=== PATIENT | female | born 1940 | race Caucasian/White ===

== ENCOUNTER → 2016-11-21 | Outpatient (REF) | payer MEDICARE ==
[~2016-11-21] MED LIST: ASPI1TAB PO; CALCIUM; KRIL300C PO; LEVO125T41 PO; LUTE6CAP2 PO; MULTTAB PO; [UNRECOGNIZED DRUG - OTHER]
[2016-11-21 11:27] LABS: ANION GAP 6 MEQ/L (8-16); BLOOD UREA NITROGEN 19 MG/DL (7-18); CALCIUM LEVEL 9.2 MG/DL (8.8-10.2); CARBON DIOXIDE LEVEL 31 MEQ/L (21-32); CHLORIDE LEVEL 105 MEQ/L (98-107); CHOLESTEROL LEVEL 182 MG/DL (<200); CREATININE FOR GFR 0.73 MG/DL (0.55-1.02); GLOMERULAR FILTRATION RATE > 60.0 (>39); GLUCOSE, FASTING 105 MG/DL (83-110); POTASSIUM SERUM 4.7 MEQ/L (3.5-5.1); SODIUM LEVEL 142 MEQ/L (136-145); TRIGLYCERIDES LEVEL 54 MG/DL (<150)
[2016-11-21 11:41] LABS: MEAN CORPUSCULAR HEMOGLOBIN 30.8 pg (27.0-33.0); MEAN CORPUSCULAR HGB CONC 32.6 g/dl (32.0-36.5); MEAN CORPUSCULAR VOLUME 94.4 fl (80.0-96.0); RED CELL DISTRIBUTION WIDTH 12.2 % (11.5-14.5); WHITE BLOOD COUNT 6.5 K/mm3 (4.0-10.0)
== END ==
LOC: M SFHCLERA 08:32
PROVIDERS: ATTEND Family Medicine
DX: E78.00 Pure hypercholesterolemia, unspecified (principal)

== ENCOUNTER → 2017-02-13 | Outpatient (CLI) | payer MEDICARE ==
--- NOTE | 2017-02-13 14:42 | REPMRS ---
Patient History The patient states she has not had a clinical breast exam in over a year. Patient is postmenopausal and has history of other cancer at age 67. No known family history of cancer. Digital Woman Screen Mammo: February 13, 2017 - Exam #: [id number] Bilateral CC and MLO view(s) were taken. Technologist: Saray Fitch Technologist Prior study comparison: March 24, 2015, digital woman screen mammo performed at [facility]. January 12, 2012, digital woman screen mammo performed at [facility]. FINDINGS: There are scattered fibroglandular densities. There has been no change in the appearance of the mammogram from the prior studies. There is a mild amount of residual fibroglandular tissue which is fairly symmetric. There is no interval development of dominant mass, architectural distortion, or clustered microcalcification suggestive of malignancy. ASSESSMENT: BI-RADS/ACR category 1 mammogram. Negative. Recommendation Routine screening mammogram in 1 year (for women over age 40). This mammogram was interpreted with the aid of an FDA-approved computer-aided dectection system. Electronically Signed By: Jericho Solano MD 02/13/17 [id number]
== END ==
LOC: M WHC 13:31
PROVIDERS: ATTEND Family Medicine
DX: Z12.31 Encounter for screening mammogram for malignant neoplasm of breast (principal)

== ENCOUNTER → 2017-06-19 | Outpatient (REF) | payer MEDICARE ==
[2017-06-19 20:47] LABS: FREE T4 1.35 NG/DL (0.76-1.46)
== END ==
LOC: M SFHCLERA 15:11
PROVIDERS: ATTEND Family Medicine
DX: R94.6 Abnormal results of thyroid function studies (principal); Z23 Encounter for immunization
CPT/HCPCS: 84439; 84443; 90686; G0008; G0463

== ENCOUNTER → 2017-10-08 | Outpatient (CLI) | payer MEDICARE | LOC: M LRY 14:57 | DX: M79.662 Pain in left lower leg (principal); M17.12 Unilateral primary osteoarthritis, left knee | CPT/HCPCS: 73564; G0463 ==

== ENCOUNTER → 2018-04-15 | Outpatient (REF) | payer MEDICARE | LOC: M SFHCLERA 11:19 | DX: R31.9 Hematuria, unspecified (principal) | CPT/HCPCS: 87086 ==

== ENCOUNTER → 2018-08-02 | Outpatient (REF) | payer MEDICARE ==
[2018-08-02 16:45] LABS: ALBUMIN 3.5 GM/DL (3.2-5.2); ALBUMIN/GLOBULIN RATIO 1.03 (1.00-1.93); ALKALINE PHOSPHATASE 82 U/L (45-117); ALT/SGPT 19 U/L (12-78); ANION GAP 8 MEQ/L (8-16); AST/SGOT 15 U/L (7-37); BILIRUBIN,TOTAL 0.3 MG/DL (0.2-1.0); BLOOD UREA NITROGEN 25 MG/DL (7-18); CALCIUM LEVEL 8.2 MG/DL (8.8-10.2); CARBON DIOXIDE LEVEL 27 MEQ/L (21-32); CHLORIDE LEVEL 106 MEQ/L (98-107); CHOLESTEROL LEVEL 169 MG/DL (<200); CHOLESTEROL RISK RATIO 2.816 (<5); CREATININE FOR GFR 0.78 MG/DL (0.55-1.30); GLOMERULAR FILTRATION RATE > 60.0 (>39); GLUCOSE, FASTING 76 MG/DL (70-100); HDL CHOLESTEROL 60 MG/DL (>40); LDL CHOLESTEROL 88 MG/DL (<100); NON-HDL-C 109 MG/DL; POTASSIUM SERUM 4.6 MEQ/L (3.5-5.1); SODIUM LEVEL 141 MEQ/L (136-145); TOTAL PROTEIN 6.9 GM/DL (6.4-8.2); TRIGLYCERIDES LEVEL 103 MG/DL (<150)
== END ==
LOC: M SFHCLERA 13:11
DX: E78.5 Hyperlipidemia, unspecified (principal); E03.9 Hypothyroidism, unspecified
CPT/HCPCS: 84443

== ENCOUNTER → 2018-08-06 | Outpatient (REF) | payer MEDICARE ==
[2018-08-06 17:13] LABS: APPEARANCE, URINE CLEAR (CLEAR); BACTERIA, URINE AUTO NEGATIVE (NEGATIVE); BILIRUBIN, URINE AUTO NEGATIVE (NEGATIVE); BLOOD, URINE BLOOD NEGATIVE (NEGATIVE); COLOR, URINE STRAW (YELLOW); GLUCOSE, URINE (UA) AUTO NEGATIVE (NEGATIVE); KETONE, URINE AUTO NEGATIVE (NEGATIVE); LEUKOCYTE ESTERASE, URINE AUTO 1+ (NEGATIVE); MUCUS, URINE SMALL (NEGATIVE); NITRITE, URINE AUTO NEGATIVE (NEGATIVE); PROTEIN, URINE AUTO NEGATIVE (NEGATIVE); RBC, URINE AUTO 1 /HPF (0-3); SQUAMOUS EPITHELIAL CELL UR AU 0 /HPF (0-6); UROBILINOGEN, URINE AUTO 0.2 mg/dL (0.0-2.0); WBC, URINE AUTO 3 /HPF (0-3)
== END ==
LOC: M SFHCLERA 13:59
DX: R31.9 Hematuria, unspecified (principal); Z23 Encounter for immunization
CPT/HCPCS: 81001

== ENCOUNTER 2018-09-24 21:24 | Emergency (ER) | payer MEDICARE ==
[~2018-09-24] VITALS: Ht 154.9 cm; Wt 64.1 kg
[2018-09-24] MEDS ORDERED: ATOR1TAB19 PO (21:36)
[2018-09-24] MEDS ORDERED: LISI-542 PO (21:36)
[2018-09-24] MEDS ORDERED: NS 500 ML IV ONE (23:00)
[2018-09-24] MEDS ORDERED: METOCLOPRAMIDE INJ 10MG/2ML VIAL (J2765) IV ONE (23:15)
[2018-09-24] MEDS ORDERED: MORPHINE 4 MG/ML 1ML VIAL/SYRINGE (J2270) IV ONE (23:15)
[2018-09-24 23:18] LABS: BASO % 0.4 % (0.0-1.0); EOS # 0.1 10^3/uL (0.0-0.50); EOS % 0.5 % (0.0-3.0); HEMATOCRIT 40.7 % (36.0-47.0); HEMOGLOBIN 13.5 g/dl (12.0-15.5); LYMPH # 1.4 10^3/uL (1.5-4.5); LYMPH % 13.7 % (24.0-44.0); MEAN CORPUSCULAR HEMOGLOBIN 30.5 pg (27.0-33.0); MEAN CORPUSCULAR HGB CONC 33.2 g/dl (32.0-36.5); MEAN CORPUSCULAR VOLUME 92.1 fl (80.0-96.0); MONO # 0.5 10^3/uL (0.0-0.8); MONO % 4.7 % (0.0-5.0); NEUTROPHILS # 8.3 10^3/uL (1.8-7.7); NEUTROPHILS % 80.4 % (36.0-66.0); PLATELET COUNT, AUTOMATED 299 10^3/uL (150-450); RED BLOOD COUNT 4.42 10^6/uL (4.00-5.40); WHITE BLOOD COUNT 10.4 10^3/uL (4.0-10.0)
[2018-09-24 23:46] LABS: ALT/SGPT 21 U/L (12-78); BILIRUBIN,DIRECT 0.1 MG/DL (0.0-0.2); BILIRUBIN,TOTAL 0.4 MG/DL (0.2-1.0); BLOOD UREA NITROGEN 16 MG/DL (7-18); CALCIUM LEVEL 8.8 MG/DL (8.8-10.2); CARBON DIOXIDE LEVEL 25 MEQ/L (21-32); CHLORIDE LEVEL 101 MEQ/L (98-107); CREATININE FOR GFR 0.64 MG/DL (0.55-1.30); GLOMERULAR FILTRATION RATE > 60.0 (>39); GLUCOSE, FASTING 109 MG/DL (70-100); LIPASE 112 U/L (73-393); POTASSIUM SERUM 4.1 MEQ/L (3.5-5.1); SODIUM LEVEL 134 MEQ/L (136-145); TOTAL PROTEIN 7.3 GM/DL (6.4-8.2)
--- NOTE | 2018-09-24 23:54 | REPVR ---
EXAM: CT Abdomen and Pelvis Without Contrast EXAM DATE/TIME: 09/24/2018 10:49 PM CLINICAL HISTORY: 78 years old, female; Pain; Abdominal pain; Flank; Left; Additional info: Colic TECHNIQUE: Axial computed tomography images of the abdomen and pelvis without contrast. All CT scans at this facility use at least one of these dose optimization techniques: automated exposure control; mA and/or kV adjustment per patient size (includes targeted exams where dose is matched to clinical indication); or iterative reconstruction. Coronal and sagittal reformatted images were created and reviewed. COMPARISON: No relevant prior studies available. FINDINGS: Lower thorax: Multiple pulmonary parenchymal calcifications likely represent granulomatous. Healed varicella lesions, pulmonary alveolar microlithiasis, occupational lung disease, and metastatic calcifications and hypercalcemia can have a similar appearance. Left paraspinal mass in the left lower lung measures 5.9 x 2.6 cm. Relatively low density lesion may indicate a neural origin such as schwannoma although other etiologies not excluded. Small sliding hiatal hernia. ABDOMEN: Liver: Normal. No mass. Gallbladder and bile ducts: Normal. No calcified stones. No ductal dilation. Pancreas: Normal. No ductal dilation. Spleen: Normal. No splenomegaly. Adrenals: Normal. No mass. Kidneys and ureters: There is a 6.5 mm. obstructive ureteral calculus located in the proximal left ureter as well as smaller obstructive calculi in the mid to distal left ureter measuring 3 mm and 5 mm resulting in moderate proximal hydroureteronephrosis. There is marked periureteral and perinephric stranding. 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 Punctate nonobstructive calculus left kidney. Umbilical hernia. Stomach and bowel: Normal. No obstruction. No mucosal thickening. Appendix: No evidence of appendicitis. PELVIS: Bladder: Unremarkable as visualized. Reproductive: Unremarkable as visualized. ABDOMEN and PELVIS: Intraperitoneal space: Normal. No free air. No significant fluid collection. Bones/joints: Mild anterolisthesis of L5 and S1, L4 on L5, and L3 on L4 all likely degenerative. Soft tissues: Otherwise unremarkable. Vasculature: Mild atherosclerotic changes in the abdominal aorta. No abdominal aortic aneurysm. Lymph nodes: Normal. No enlarged lymph nodes. IMPRESSION: 1. Left paraspinal mass in the left lower lung measures 5.9 x 2.6 cm. Relatively low density lesion may indicate a neural origin such as schwannoma although other etiologies not excluded. 2. Small sliding hiatal hernia. 3. There is a 6.5 mm. obstructive ureteral calculus located in the proximal left ureter as well as smaller obstructive calculi in the mid to distal left ureter measuring 3 mm and 5 mm resulting in moderate proximal hydroureteronephrosis. There is marked periureteral and perinephric stranding. 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 Electronically signed by: Jose Mcgrath On 09/24/2018 23:53:45 PM
[2018-09-24 23:59] LABS: AMORPHOUS SEDIMENT SMALL (NEGATIVE); APPEARANCE, URINE CLOUDY (CLEAR); BACTERIA, URINE AUTO 1+ (NEGATIVE); BILIRUBIN, URINE AUTO NEGATIVE (NEGATIVE); BLOOD, URINE BLOOD NEGATIVE (NEGATIVE); COLOR, URINE YELLOW (YELLOW); GLUCOSE, URINE (UA) AUTO NEGATIVE (NEGATIVE); KETONE, URINE AUTO 1+ mg/dL (NEGATIVE); LEUKOCYTE ESTERASE, URINE AUTO 1+ (NEGATIVE); MUCUS, URINE SMALL (NEGATIVE); NITRITE, URINE AUTO NEGATIVE (NEGATIVE); PROTEIN, URINE AUTO NEGATIVE (NEGATIVE); RBC, URINE AUTO 42 /HPF (0-3); SPECIFIC GRAVITY URINE AUTO 1.012 (1.002-1.035); SQUAMOUS EPITHELIAL CELL UR AU 1 /HPF (0-6); TRANSITIONAL EPITHELIAL AUTO <1 /HPF; UROBILINOGEN, URINE AUTO 0.2 mg/dL (0.0-2.0); WBC, URINE AUTO 11 /HPF (0-3)
[2018-09-25] MEDS ORDERED: KETOROLAC 30 MG/ML VIAL (J1885) IV ONE (00:15)
[2018-09-25] MEDS ORDERED: NS 1,000 ML IV ONE (00:15)
[2018-09-25] MEDS ORDERED: TAMSULOSIN 0.4 MG CAP PO ONE (00:15)
[2018-09-25 02:00] VITALS: BP 133/75
[2018-09-25] MEDS ORDERED: NORCO 5/325MG TABLET (BULK FOR ED) PO ONE (02:00)
[2018-09-25] MEDS ORDERED: CIPR-249 PO (02:01)
[2018-09-25] MEDS ORDERED: FLOM0.4C39 PO (02:01)
--- NOTE | 2018-09-26 16:03 | ED PDOC ---
Post-Departure Follow-Up pt sent certified letter re formal read of ct abd/p. please see report. instruct pt to maki bowman. dr bowman faxed report too Nathanael Lu MD Sep 26, 2018 16:03
== END 2018-09-25 02:11 | disposition home or self-care (01) ==
LOC: M ED 21:24
DX: N20.1 Calculus of ureter (principal); R93.5 Abnormal findings on diagnostic imaging of other abdominal regions, including retroperitoneum; R11.2 Nausea with vomiting, unspecified; I10 Essential (primary) hypertension; E78.5 Hyperlipidemia, unspecified; Z79.899 Other long term (current) drug therapy; Z79.82 Long term (current) use of aspirin
CPT/HCPCS: 74176; 80048; 80076; 81001; 83690; 85025; 87088; 87186; 96374; 96375; 99284; J1885; J2270; J2765

== ENCOUNTER → 2018-10-03 | Outpatient (CLI) | payer MEDICARE ==
[~2018-10-03] MED LIST changes: +ATOR1TAB19 PO; +AUGM500T34 PO; +BACT800T5 PO; +CIPR-249 PO; +FLOM0.4C39 PO; +LISI-542 PO; +OXAY1TAB PO; +PERC2.5T PO; +PROBCAP4 PO; +TYLE500T78 PO
--- NOTE | 2018-10-03 11:28 | REP ---
KUB, ONE VIEW: HISTORY: Ureteral stone. COMPARISON: CT 09/24/2018 A small amount of air is present in small and large intestine. There are no air fluid levels or dilated loops of intestine. There is no pneumoperitoneum. A moderate amount of stool is present in the colon. The previously noted calcification in the region of the proximal left ureter is not seen in the present radiograph. IMPRESSION: 1. Nonspecific bowel gas pattern. 2. The previously noted calcification in the region of the proximal left ureter is not seen in the present radiograph. Electronically Signed by Abiodun Ibanez MD 10/03/2018 11:30 A
== END ==
LOC: M SMT 10:13
PROVIDERS: ATTEND Nurse Practitioner Women's Health
DX: N13.2 Hydronephrosis with renal and ureteral calculous obstruction (principal)
CPT/HCPCS: 74018; G0463

== ENCOUNTER → 2018-10-08 | Outpatient (REF) | payer MEDICARE ==
[~2018-10-08] MED LIST changes: -BACT800T5 PO; -OXAY1TAB PO; -PROBCAP4 PO
[2018-10-08 20:25] LABS: BASO # 0.1 10^3/uL (0.0-0.2); BASO % 0.7 % (0.0-1.0); EOS # 0.2 10^3/uL (0.0-0.50); EOS % 2.6 % (0.0-3.0); HEMATOCRIT 37.4 % (36.0-47.0); HEMOGLOBIN 12.2 g/dl (12.0-15.5); LYMPH # 1.5 10^3/uL (1.5-4.5); LYMPH % 17.5 % (24.0-44.0); MEAN CORPUSCULAR HEMOGLOBIN 30.4 pg (27.0-33.0); MEAN CORPUSCULAR HGB CONC 32.6 g/dl (32.0-36.5); MEAN CORPUSCULAR VOLUME 93.3 fl (80.0-96.0); MONO # 0.7 10^3/uL (0.0-0.8); MONO % 7.6 % (0.0-5.0); NEUTROPHILS # 6.2 10^3/uL (1.8-7.7); NEUTROPHILS % 71.4 % (36.0-66.0); PLATELET COUNT, AUTOMATED 355 10^3/uL (150-450); RED BLOOD COUNT 4.01 10^6/uL (4.00-5.40); WHITE BLOOD COUNT 8.7 10^3/uL (4.0-10.0)
[2018-10-08 20:52] LABS: BLOOD UREA NITROGEN 16 MG/DL (7-18); CALCIUM LEVEL 8.8 MG/DL (8.8-10.2); CARBON DIOXIDE LEVEL 30 MEQ/L (21-32); CHLORIDE LEVEL 107 MEQ/L (98-107); CREATININE FOR GFR 0.74 MG/DL (0.55-1.30); GLOMERULAR FILTRATION RATE > 60.0 (>39); GLUCOSE, FASTING 89 MG/DL (70-100); POTASSIUM SERUM 4.4 MEQ/L (3.5-5.1); SODIUM LEVEL 143 MEQ/L (136-145)
== END ==
LOC: M SFHCLERA 15:31
PROVIDERS: ATTEND Family Medicine
DX: N39.0 Urinary tract infection, site not specified (principal)

== ENCOUNTER → 2018-10-08 | Outpatient (CLI) | payer MEDICARE ==
--- NOTE | 2018-10-08 16:50 | REP ---
Chest two views HISTORY: Lung mass Comparison: Chest x-ray 07/[address] thorax 09/15/2010 Multiple calcified granulomas are present in the lungs. The heart is normal in size. The pulmonary vasculature is normal in appearance. There is a low density mass in the lower thoracic left paravertebral region. The bony structure is intact. IMPRESSION: 1. There are multiple calcified granulomas in the lungs. 2. There is a low-density mass in the lower thoracic left anterior paravertebral region. This appears unchanged compared to CT 09/15/2010. Electronically Signed by Abiodun Ibanez MD 10/08/2018 04:41 P
[2018-10-08 20:48] LABS: APPEARANCE, URINE CLEAR (CLEAR); BACTERIA, URINE AUTO NEGATIVE (NEGATIVE); BILIRUBIN, URINE AUTO NEGATIVE (NEGATIVE); BLOOD, URINE BLOOD NEGATIVE (NEGATIVE); COLOR, URINE YELLOW (YELLOW); GLUCOSE, URINE (UA) AUTO NEGATIVE (NEGATIVE); KETONE, URINE AUTO NEGATIVE (NEGATIVE); LEUKOCYTE ESTERASE, URINE AUTO 1+ (NEGATIVE); MUCUS, URINE SMALL (NEGATIVE); NITRITE, URINE AUTO NEGATIVE (NEGATIVE); PROTEIN, URINE AUTO NEGATIVE (NEGATIVE); RBC, URINE AUTO 14 /HPF (0-3); SPECIFIC GRAVITY URINE AUTO 1.013 (1.002-1.035); SQUAMOUS EPITHELIAL CELL UR AU 0 /HPF (0-6); UROBILINOGEN, URINE AUTO 0.2 mg/dL (0.0-2.0); WBC, URINE AUTO 16 /HPF (0-3)
== END ==
LOC: M LRY 15:56
PROVIDERS: ATTEND Family Medicine
DX: J98.4 Other disorders of lung (principal); R91.8 Other nonspecific abnormal finding of lung field

== ENCOUNTER 2018-10-11 10:07 | Inpatient (IN) | payer MEDICARE ==
[~2018-10-11] VITALS: Ht 157.5 cm; Wt 65.1 kg
[~2018-10-11 10:07] MED LIST changes: -AUGM500T34 PO; -PERC2.5T PO; -TYLE500T78 PO
[2018-10-11 10:30] VITALS: BP 190/98
[2018-10-11] MEDS ORDERED: PERC2.5T PO (10:54)
[2018-10-11] MEDS ORDERED: HYDROMORPHONE HCL 0.5 MG/ 0.5 ML SYRINGE (J1170 PER 1) IV PRN (11:00)
[2018-10-11] MEDS: D5W/LR 1,000 ML IV SCH ×2 (11:22→19:30)
[2018-10-11] MEDS: cefTRIAXone SOD 1 GM in D5W MINI-BAG PLUS 50 ML IV SCH ×2 (11:22→12:18)
[2018-10-11] MEDS: ONDANSETRON 4MG/2ML VIAL (J2405) IV SCH ×3 (11:22→23:00)
[2018-10-11 12:00] VITALS: BP 118/59
[2018-10-11 16:00] VITALS: BP 114/64
[2018-10-11 17:09] LABS: HEMATOCRIT 34.7 % (36.0-47.0); HEMOGLOBIN 11.6 g/dl (12.0-15.5); MEAN CORPUSCULAR HEMOGLOBIN 30.4 pg (27.0-33.0); MEAN CORPUSCULAR HGB CONC 33.4 g/dl (32.0-36.5); MEAN CORPUSCULAR VOLUME 90.8 fl (80.0-96.0); PLATELET COUNT, AUTOMATED 284 10^3/uL (150-450); RED BLOOD COUNT 3.82 10^6/uL (4.00-5.40); WHITE BLOOD COUNT 11.8 10^3/uL (4.0-10.0)
[2018-10-11 17:30] LABS: BLOOD UREA NITROGEN 14 MG/DL (7-18); CALCIUM LEVEL 8.1 MG/DL (8.8-10.2); CARBON DIOXIDE LEVEL 25 MEQ/L (21-32); CHLORIDE LEVEL 105 MEQ/L (98-107); CREATININE FOR GFR 0.68 MG/DL (0.55-1.30); GLOMERULAR FILTRATION RATE > 60.0 (>39); GLUCOSE, FASTING 116 MG/DL (70-100); POTASSIUM SERUM 4.2 MEQ/L (3.5-5.1); SODIUM LEVEL 137 MEQ/L (136-145)
[2018-10-11 17:41] LABS: INR 1.12; PARTIAL THROMBOPLASTIN TIME 31.2 SECONDS (25.4-37.6); PROTHROMBIN TIME 14.6 SECONDS (12.1-14.4)
[2018-10-11 18:30] LABS: APPEARANCE, URINE CLEAR (CLEAR); BACTERIA, URINE AUTO NEGATIVE (NEGATIVE); BILIRUBIN, URINE AUTO NEGATIVE (NEGATIVE); BLOOD, URINE BLOOD NEGATIVE (NEGATIVE); COLOR, URINE STRAW (YELLOW); GLUCOSE, URINE (UA) AUTO NEGATIVE (NEGATIVE); KETONE, URINE AUTO NEGATIVE (NEGATIVE); LEUKOCYTE ESTERASE, URINE AUTO NEGATIVE (NEGATIVE); NITRITE, URINE AUTO NEGATIVE (NEGATIVE); PROTEIN, URINE AUTO NEGATIVE (NEGATIVE); RBC, URINE AUTO 1 /HPF (0-3); SPECIFIC GRAVITY URINE AUTO 1.002 (1.002-1.035); SQUAMOUS EPITHELIAL CELL UR AU 1 /HPF (0-6); UROBILINOGEN, URINE AUTO 0.2 mg/dL (0.0-2.0); WBC, URINE AUTO 1 /HPF (0-3)
[2018-10-11] MEDS ORDERED: PIPERACILLIN/TAZOBACTAM SOD 3.375 GM in D5W MINI-BAG PLUS 50 ML IV PRN (19:45)
[2018-10-11 20:00] VITALS: BP 139/66
[2018-10-11] MEDS ORDERED: LIDOCAINE 2% INJ 100 MG/5 ML SDV (FOR ANES.) As Ordered ONE (21:10)
[2018-10-11] MEDS ORDERED: PROPOFOL 200 MG/20 ML VIAL As Ordered ONE (21:10)
[2018-10-11] MEDS ORDERED: MIDAZOLAM INJ 2 MG/2 ML VIAL (J2250) As Ordered ONE (21:10)
[2018-10-11] MEDS ORDERED: fentaNYL 100 MCG/2 ML INJECTION (J3010) As Ordered ONE ×2 (21:10→21:49)
[2018-10-11] MEDS ORDERED: ZOSYN 3.375 GM VIAL (J2543) As Ordered ONE (21:15)
[2018-10-11] MEDS ORDERED: ePHEDrine SULFATE 25 MG/5 ML(5MG/ML) SYRINGE As Ordered ONE (21:41)
[2018-10-11] MEDS ORDERED: LIDOCAINE 2% 5ML JELLY UROJET As Ordered ONE (21:47)
[2018-10-11] MEDS ORDERED: CONRAY-60 60% 50ML VIAL (Q9961) As Ordered ONE (21:47)
[2018-10-11] MEDS ORDERED: hydrALAZINE INJ 20 MG/ML VIAL As Ordered ONE (21:55)
--- NOTE | 2018-10-11 22:35 | ROOPDOC ---
[facility] Report Of Operation Report of Operation DATE OF PROCEDURE: 10/11/18 PREPROCEDURE DIAGNOSES: LEFT DISTAL URETERAL STONE; OBSTRUCTIVE UROPATHY POSTPROCEDURE DIAGNOSES: SAME. 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 PROCEDURE: CYSTOSCOPY; RETROGRADE PYELOGRAM AND LEFT URETERAL STENT PLACEMENT (6FX 22-30CM); Bladder biopsy (over the left ureter , roof). stone basketing associated with stone manipulation SURGEON: DI CISNEROS MD MPH MERLENE ANESTHESIA: MAC (DR. PADILLA). ESTIMATED BLOOD LOSS: Approximately <1 mL. COMPLICATIONS: NONE. REMARKS/FINDINGS: DISTAL URETERAL STONE AND RENAL STONE (filling defect distal ureter); stone not visible on KUB. MIDLINE LARGE GRADE2 CYSTOCELE. Debris from the left ureter was mushy and difficult to grab. debris/maybe stone sent for analysis; left ureter lesion was identified and biopsied; bladder neck polyp that appeared benign (pt denies hpv); pt has stopped doing kegel excercises (encouraged to do them). DESCRIPTION OF PROCEDURE: AFTER INFORMED CONSENT SIGNED BY PATIENT AND HER DAUGHTER, PATIENT WAS TAKEN TO THE OR FOR ROUTINE TIME OUT AND ANESTHESIA INDUCTION. SHE WAS PLACED IN LITHOTOMY WHERE SHE WAS PREPPED AND DRAPED AND 21 F CYSTOSCOPE SHEATH WITH 30 DEGREE SCOPE WAS PLACED INTO URETHRA ADVANCED TO THE BLADDER WHERE THE LEFT URETER WAS INTUBATED WITH 5F OPEN ENDED CATHETER. NON DILUTED CONRAY WAS PLACED UP THE CATHETER AND FILLING DEFECT COULD BE SEEN IN THE DISTAL URETER ASSOCIATED WITH STONE ONCE THE RETROGRADE WAS COMPLETE. 0.035 GUIDEWIRE (MOTION) WAS ADVANCED TO THE RENAL PELVIS. THEN IN EXCHANGE FOR THE OPEN ENDED CATHETER THE 6 X 22-30CM CATHETER WAS ADVANCED. CURL AT THE RENAL PELVIS AND BLADDER WERE VISUALIZED BOTH DIRECTLY AND INDIRECTLY WITH SCOPE AND FLUOROSCOPY, RESPECTIVELY. Debris noticed in the bladder was basketted and sent for analysis. Attention was turned to a left intravesical ureteral lesion which was biopsied and sent to pathology. PT TOLERATED THE PROCEDURE WELL AND WAS TAKEN TO THE RECOVERY ROOM IN STABLE CONDITION. THE PHOTOS WERE SHOWN TO THE FAMILY (HER AND DAUGHTER) IN ADVANCED RECOVERY. WHEN THE PT HAS HAD SOME RECOVERY WE CAN PLAN OUTPATIENT CYSTO URETEROSCOPY LASER LITHO STENT. STONE WAS NOT VISIBLE ON KUB. CONSIDER ALKALINIZING URINE as outpatient. sent home with augmentin, continue flomax. Pt was seen prior to discharge and identified to be pain free, afebrile and w/o nausea, but was experiencing frequency (discussed self limited), discussed cystocele (kegels and pessary), bladder lesion and biopsy, anticipated blood frequency. Pt was stable and is allowed to go home tonight if she meets pacu discharge criteria. Di Cisneros MD Oct 11, 2018 22:35
[2018-10-11] MEDS ORDERED: AUGM500T34 PO (22:47)
[2018-10-11] MEDS ORDERED: TYLE500T78 PO (22:47)
[2018-10-11 23:20] VITALS: BP 139/71
[2018-10-11 23:50] VITALS: BP 150/76
--- NOTE | 2018-10-12 08:36 | REP ---
Clinical: Stent placement. Technique: Intraoperative fluoroscopic imaging using portable C-arm technique. Findings: Three views from a retrograde pyelogram demonstrate mild left-sided hydroureter along with ovoid density in the left upper quadrant just below the pigtail from the ureteral stent which may reflect residual contrast in lower pole renal nhi. Total fluoroscopic time 29 seconds. Impression: Left ureteral stent placement. As above. Electronically Signed by Frankie Strong MD 10/12/2018 08:27 A
--- NOTE | 2018-10-12 15:33 | ECGEPIP ---
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
--- NOTE | 2018-11-12 17:43 | DS.PDOC ---
Discharge Summary General Date of Admission Oct 11, 2018 at 10:07 Date of Discharge Sep 11pm Primary Care Physician: VALERIE NAVARRO MD Attending Physician: VALERIE NAVARRO MD Specialist/Consultants Involve: VALERIE NAVARRO MD Discharge Summary PROCEDURES PERFORMED DURING STAY:left ureteral stent; ureteral stone flank pain and obstructing uropathy. ADMITTING DIAGNOSES: 1. ureteral stone (left) 2. obstructing uropathy. DISCHARGE DIAGNOSES: 1. same. COMPLICATIONS/CHIEF COMPLAINT: Left Ureteral Stone. HISTORY OF PRESENT ILLNESS: presented to the office where dr. navarro assessed pt need urgent care. he admitted the patient at 10 30am. when i came tax professional the patient was still here and wanting intervention for her obstructing uropathy. HOSPITAL COURSE: admission oct 11 discharge oct 11 late at night. DISCHARGE MEDICATIONS: Please see below. ALLERGIES: Please see below. PHYSICAL EXAMINATION ON DISCHARGE: VITAL SIGNS: Please see below. GENERAL: alert and oriented HEENT:no erythema or exudate NECK: supple good rom CARDIOVASCULAR EXAMINATION: rrr no cyanosis RESPIRATORY EXAMINATION: good excursion no wheeze no stridor ABDOMINAL EXAMINATION: soft non tender non distended EXTREMITIES: no cyanosis good rom SKIN: aged (scar on face above right eye NEUROLOGICAL EXAMINATION: alert and oriented PSYCHIATRIC EXAMINATION: normal mood and affect LABORATORY DATA: Please see below. IMAGING: kub and ct scan PROGNOSIS: good; plan to do op procedure ACTIVITY: As tolerated. DIET: as tolerated DISCHARGE PLAN: f/u with dr. orta for definitive procedure of stone including ureteroscopy DISPOSITION: 01 Home, Self-Care. DISCHARGE INSTRUCTIONS: 1. see the discharge orders. ITEMS TO FOLLOWUP ON ON OUTPATIENT: 1. stent. DISCHARGE CONDITION: stable TIME SPENT ON DISCHARGE: Greater than 60 minutes. Discharge Medications Scheduled (Multiple Vitamin) 1 Tab Tab, 1 TAB PO DAILY, (Reported) Acetaminophen (Tylenol Extra Strength) 500 Mg Tab, 500 MG PO Q6H for PAIN Aspirin (Aspirin 81) 81 Mg Tab, 81 MG PO DAILY, (Reported) Atorvastatin Calcium (Atorvastatin Calcium) 10 Mg Tab, 10 MG PO DAILY, (Reported) Lactobacillus Acidophilus (Probiotic) 1 Cap Cap, 1 CAP PO DAILY Levothyroxine Sodium (Levoxyl) 125 Mcg Tab, 125 MCG PO DAILY, (Reported) Lisinopril (Lisinopril) 5 Mg Tab, 1 TAB PO DAILY, (Reported) Tamsulosin Hydrochloride (Flomax) 0.4 Mg Cap, 1 CAP PO DAILY once daily 1/2 hour following the same meal each day Tamsulosin Hydrochloride (Flomax) 0.4 Mg Cap, 0.4 MG PO DAILY Trimethoprim/Sulfamethoxazole (Bactrim Ds 800-160 mg) 1 Tab Tab, 1 TAB PO BID Vegetable Enzyme (Lutein) 6 Mg Cap, 6 MG PO DAILY, (Reported) Scheduled PRN Oxycodone HCl (Oxaydo) 5 Mg Tab, 5 MG PO Q6HP PRN for PAIN 03/26 Miscellaneous Medications [calcium +d] , (Reported) Allergies Coded Allergies: No Known Allergies (Unverified , 09/30/15) Sherrell Orta MD Nov 12, 2018 17:43
== END 2018-10-12 00:40 | disposition home or self-care (01) | DRG 661 ==
LOC: M PED 10:07 → EDSTATUS 17:30
PROVIDERS: ADMIT Urology; ATTEND Urology
PROC: 0TB78ZX Excision of Left Ureter, Via Natural or Artificial Opening Endoscopic, Diagnostic (ICD-10-PCS; 2018-10-11)
PROC: 0T778DZ Dilation of Left Ureter with Intraluminal Device, Via Natural or Artificial Opening Endoscopic (ICD-10-PCS; 2018-10-11)
PROC: 0TC78ZZ Extirpation of Matter from Left Ureter, Via Natural or Artificial Opening Endoscopic (ICD-10-PCS; principal; 2018-10-11 20:17)
DX: N20.1 Calculus of ureter (principal); N13.9 Obstructive and reflux uropathy, unspecified; J98.4 Other disorders of lung; R91.8 Other nonspecific abnormal finding of lung field; E89.0 Postprocedural hypothyroidism; Z79.82 Long term (current) use of aspirin; Z79.899 Other long term (current) drug therapy

== ENCOUNTER → 2018-10-17 | Outpatient (REF) | payer MEDICARE ==
[~2018-10-17] MED LIST changes: +AUGM500T34 PO; +BACT800T5 PO; +OXAY1TAB PO; +PERC2.5T PO; +PROBCAP4 PO; +TYLE500T78 PO
== END ==
LOC: M SMT 12:53
PROVIDERS: ATTEND Urology Pediatric Urology
DX: N13.2 Hydronephrosis with renal and ureteral calculous obstruction (principal)
CPT/HCPCS: 87086; G0463

== ENCOUNTER → 2018-10-17 | Outpatient (CLI) | payer MEDICARE ==
--- NOTE | 2018-10-17 10:34 | REP ---
Clinical: Ureteral stone. Technique: Supine view of the abdomen and pelvis. Comparison: 10/03/2018. Findings: Left ureteral stent in satisfactory position. A 6 mm calculus is superimposed over the proximal portion of the stent which may be in the proximal ureter or ureteropelvic junction. No organomegaly. Small scattered pulmonary granuloma suggested at the lung bases. Nonspecific bowel gas pattern. Skeletal structures demonstrate age-related changes. Impression: 1. 6 mm calculus superimposed over the proximal portion of the ureteral stent which may be within the UPJ or proximal ureter. 2. Calcified pulmonary granulomata. Electronically Signed by Frankie Strong MD 10/17/2018 10:26 A
== END ==
LOC: M RAD 10:08
PROVIDERS: ATTEND Nurse Practitioner Women's Health
DX: N13.2 Hydronephrosis with renal and ureteral calculous obstruction (principal)
CPT/HCPCS: 74018; G0463

== ENCOUNTER 2018-10-22 05:50 | Day surgery (SDC) | payer MEDICARE ==
[~2018-10-22] VITALS: Ht 157.5 cm; Wt 65.2 kg
[~2018-10-22 05:50] MED LIST changes: -BACT800T5 PO; -OXAY1TAB PO; -PROBCAP4 PO
[2018-10-22] MEDS ORDERED: PIPERACILLIN/TAZOBACTAM SOD 3.375 GM in D5W MINI-BAG PLUS 50 ML IV SCH (06:00)
[2018-10-22] MEDS ORDERED: LR 1,000 ML IV ONE (06:00)
[2018-10-22] MEDS ORDERED: MIDAZOLAM INJ 2 MG/2 ML VIAL (J2250) As Ordered ONE (07:11)
[2018-10-22] MEDS ORDERED: PROPOFOL 200 MG/20 ML VIAL As Ordered ONE (07:11)
[2018-10-22] MEDS ORDERED: LIDOCAINE 2% INJ 100 MG/5 ML SDV (FOR ANES.) As Ordered ONE (07:11)
[2018-10-22] MEDS ORDERED: fentaNYL 100 MCG/2 ML INJECTION (J3010) As Ordered ONE (07:11)
[2018-10-22] MEDS ORDERED: CONRAY-60 60% 50ML VIAL (Q9961) As Ordered ONE (07:14)
[2018-10-22] MEDS ORDERED: LIDOCAINE 2% 5ML JELLY UROJET As Ordered ONE (07:15)
[2018-10-22] MEDS ORDERED: ONDANSETRON 4MG/2ML VIAL (J2405) As Ordered ONE (07:43)
[2018-10-22] MEDS ORDERED: dexameTHASONE 4 MG/ML 1ML VIAL (J1100) As Ordered ONE (07:43)
[2018-10-22] MEDS ORDERED: PHENYLephrine HCL 500 MCG/5 ML (100MCG/ML) SYRINGE (J2370) As Ordered ONE ×2 (07:47→08:09)
[2018-10-22] MEDS ORDERED: ePHEDrine SULFATE 25 MG/5 ML(5MG/ML) SYRINGE As Ordered ONE (07:53)
[2018-10-22] MEDS ORDERED: GENTAMICIN SULF INJ 80MG/2ML VIAL (J1580) As Ordered ONE (08:52)
--- NOTE | 2018-10-22 09:29 | ROOPDOC ---
[facility] Report Of Operation Report of Operation DATE OF PROCEDURE: 10/22/18 PREPROCEDURE DIAGNOSES:left kidney/ureteral stone. POSTPROCEDURE DIAGNOSES: same. PROCEDURE: left stent removal, ureteroscopy, laser lithotripsy, flexible ureteroscopy, stone basketing, stent placement. SURGEON: Sherrell Rodriguez MD MPH MERLENE ANESTHESIA: GET (Fran Marroquin MD; Jluis Tuttle CRNA) ESTIMATED BLOOD LOSS: Approximately <20 mL. COMPLICATIONS: none. REMARKS/FINDINGS: 1. left renal clot, bleeding, left distal ureteral stone, left lower pole and mid pole stone. 2. All visible stones were broken to smaller or removed in its entirety when it facile to do so. 3. stent 7f [id number] stent DESCRIPTION OF PROCEDURE: After informed consent pt was taken to the operating room where routine time out was performed for all care stakeholders, who were in agreement. The patient was placed in lithotomy position, prepped and draped and 21 f cystoscope was introduced into the bladder. The ureteral (left) stent was pulled with the flexible forceps to the meatus and motion hybrid wire was placed up the ureter into the renal pelvis. Semi rigid ureteroscope was introduced along side the wire up the ureter and 365laser fiber was also placed through the ureteroscope to the most distal stone which was mid ureter and imbedded in the side wall of the ureter. The laser was set to 10 brothers (1j and 10hz). The stone was broken to smalle pieces and retrieved serially. Another stone travelled up the kidney was retrieved using the nitinol basket. Then there was visualization of stones in the lower and mid pole (direct and fluoroscopy) using the flexible ureteroscope after placing second motion wire and exchanging the semirigid ureteroscope for ureteral access sheath and flexible ureteroscope. The first small stone was seen in the lower pole ureter retrieved with the nitinol basket and easily passed through the access sheath. The second slight large stone was pulled to from the mid pole and came easily to the proximal end to the access sheath and slowly removed serially until the stone was remove and sent for stone analysis. The retrograde was performed using a dual lumen catheter and the stent 7f 22-30cm was placed over the wire, after removing the dual lumen catheter, and secured to the left inner thigh with mastisol, steri strips and Tegaderm. The patient tolerated the procedure well and was taken to the recovery room in excellent condition. Pt is encouraged to hydrate. It was uncovered that the patients clotting factors were not optimal secondary to her use of Aspirin 3 days ago. she is to void [id number]; She will be covered with antibiotics in the discharge. She is f/u 2 weeks with urology for stent removal (stent is on a string). Pt may reinforce her tape to left inner thigh. Pt encouraged to continue mag oxide and lactobacillus. Sherrell Rodriguez MD MPH MERLENE. Sherrell Rodriguez MD Oct 22, 2018 09:29
[2018-10-22] MEDS ORDERED: FLOM0.4C39 PO (09:35)
[2018-10-22] MEDS ORDERED: BACT800T5 PO (09:35)
[2018-10-22] MEDS ORDERED: TYLE500T78 PO (09:35)
[2018-10-22] MEDS ORDERED: OXAY1TAB PO (09:35)
[2018-10-22] MEDS ORDERED: PROBCAP4 PO (09:35)
[2018-10-22] MEDS ORDERED: LR 1,000 ML IV SCH (09:45)
[2018-10-22] MEDS ORDERED: ONDANSETRON 4MG/2ML VIAL (J2405) IV PRN (09:45)
[2018-10-22] MEDS ORDERED: fentaNYL 100 MCG/2 ML INJECTION (J3010) IV PRN (09:45)
[2018-10-22] MEDS ORDERED: PERCOCET 5MG/325MG TAB PO PRN (09:45)
--- NOTE | 2018-10-22 09:46 | REP ---
Retrograde ureterogram: 49 views. History: Left ureteral stricture. Left ureteral stones. 0.54 minutes of fluoroscopy time was utilized. Findings: A sequence of 49 last image hold fluoroscopically obtained spot radiographs of the abdomen document ureteral cannulation, ureteroscope and guidewire manipulation, contrast injection, and double pigtail ureteral stent placement. Electronically Signed by Reno Torrez MD 10/22/2018 10:04 A
[2018-10-22 10:14] LABS: APPEARANCE, URINE CLEAR (CLEAR); BACTERIA, URINE AUTO NEGATIVE (NEGATIVE); BILIRUBIN, URINE AUTO NEGATIVE (NEGATIVE); BLOOD, URINE BLOOD 2+ (NEGATIVE); COLOR, URINE STRAW (YELLOW); GLUCOSE, URINE (UA) AUTO NEGATIVE (NEGATIVE); KETONE, URINE AUTO NEGATIVE (NEGATIVE); LEUKOCYTE ESTERASE, URINE AUTO TRACE (NEGATIVE); NITRITE, URINE AUTO NEGATIVE (NEGATIVE); PROTEIN, URINE AUTO NEGATIVE (NEGATIVE); RBC, URINE AUTO 146 /HPF (0-3); SPECIFIC GRAVITY URINE AUTO 1.009 (1.002-1.035); SQUAMOUS EPITHELIAL CELL UR AU 0 /HPF (0-6); UROBILINOGEN, URINE AUTO 0.2 mg/dL (0.0-2.0); WBC, URINE AUTO 3 /HPF (0-3)
[2018-10-22 11:17] VITALS: BP 155/81
[2018-10-25 14:32] LABS: COMMENT Note: (.); Ca Ox Monohydrate 80 % (.)
== END 2018-10-22 11:26 | disposition home or self-care (01) ==
LOC: M SDC 05:50
PROVIDERS: ATTEND Urology Pediatric Urology
DX: N20.1 Calculus of ureter (principal); I10 Essential (primary) hypertension; E03.9 Hypothyroidism, unspecified; E78.5 Hyperlipidemia, unspecified; Z92.3 Personal history of irradiation; Z85.850 Personal history of malignant neoplasm of thyroid; Z79.82 Long term (current) use of aspirin; Z79.899 Other long term (current) drug therapy
CPT/HCPCS: 52356; 74420; 81001; 82360; 87086; 88300; C1769; C1894; C2617; J1100; J1580; J2250; J2370; J2405; J2543; J3010; Q9961

== ENCOUNTER → 2018-11-13 | Outpatient (CLI) | payer MEDICARE ==
[~2018-11-13] MED LIST changes: +BACT800T5 PO; +OXAY1TAB PO; +PROBCAP4 PO
--- NOTE | 2018-11-13 12:12 | REP ---
Clinical: Nephrolithiasis. Comparison: 10/17/2018. Technique: Single supine view of the abdomen and pelvis. Findings: Previously noted left ureteral stent and proximal left ureteral calculus no longer evident. Further evaluation of the urinary tract system is significantly limited due to overlying moderate fecal stasis and bowel gas pattern. No bowel obstruction or obvious perforation. Skeletal structures are stable. Impression: 1. Left ureteral stent has been removed and left ureteral calculus is no longer visible. 2. Further evaluation is limited due to moderate fecal stasis and bowel gas pattern. Electronically Signed by Frankie Strong MD 11/13/2018 12:03 P
[2018-11-13 17:00] LABS: IONIZED CALCIUM 4.7 MG/DL (4.5-5.3)
[2018-11-13 17:32] LABS: ALBUMIN 3.8 GM/DL (3.2-5.2); BLOOD UREA NITROGEN 19 MG/DL (7-18); CALCIUM LEVEL 8.9 MG/DL (8.8-10.2); CARBON DIOXIDE LEVEL 31 MEQ/L (21-32); CHLORIDE LEVEL 103 MEQ/L (98-107); CREATININE FOR GFR 0.67 MG/DL (0.55-1.30); GLOMERULAR FILTRATION RATE > 60.0 (>39); GLUCOSE, FASTING 88 MG/DL (70-100); MAGNESIUM LEVEL 2.2 MG/DL (1.8-2.4); PHOSPHORUS LEVEL 4.6 MG/DL (2.5-4.9); POTASSIUM SERUM 4.7 MEQ/L (3.5-5.1); SODIUM LEVEL 139 MEQ/L (136-145); URIC ACID 3.6 MG/DL (2.6-6.0)
== END ==
LOC: M SMT 11:17
PROVIDERS: ATTEND Urology Pediatric Urology
DX: N20.0 Calculus of kidney (principal)

== ENCOUNTER → 2019-03-05 | Outpatient (REF) | payer MEDICARE ==
[~2019-03-05] MED LIST changes: -ASPI1TAB PO; +ASPI81TA26 PO
[2019-03-05 12:19] LABS: BLOOD UREA NITROGEN 17 MG/DL (7-18); CALCIUM LEVEL 9.6 MG/DL (8.8-10.2); CARBON DIOXIDE LEVEL 29 MEQ/L (21-32); CHLORIDE LEVEL 100 MEQ/L (98-107); CK-MB VALUE MASS 1.3 NG/ML (<3.6); CPK CREATINE PHOSPHOKINASE 60 U/L (26-192); CREATININE FOR GFR 0.75 MG/DL (0.55-1.30); GLOMERULAR FILTRATION RATE > 60.0 (>39); GLUCOSE, FASTING 103 MG/DL (70-100); MAGNESIUM LEVEL 2.3 MG/DL (1.8-2.4); MB/CK RELATIVE INDEX 2.17 (< OR =4); POTASSIUM SERUM 4.6 MEQ/L (3.5-5.1); SODIUM LEVEL 135 MEQ/L (136-145)
== END ==
LOC: M SFHCLERA 09:17
PROVIDERS: ATTEND Family Medicine
DX: R25.2 Cramp and spasm (principal); E03.9 Hypothyroidism, unspecified
CPT/HCPCS: 80048; 82553; 83735; 84443; G0463

== ENCOUNTER → 2019-06-19 | Outpatient (REF) | payer MEDICARE ==
[2019-06-19 20:45] LABS: APPEARANCE, URINE CLEAR (CLEAR); BACTERIA, URINE AUTO NEGATIVE (NEGATIVE); BILIRUBIN, URINE AUTO NEGATIVE (NEGATIVE); BLOOD, URINE BLOOD NEGATIVE (NEGATIVE); COLOR, URINE STRAW (YELLOW); GLUCOSE, URINE (UA) AUTO NEGATIVE (NEGATIVE); KETONE, URINE AUTO NEGATIVE (NEGATIVE); LEUKOCYTE ESTERASE, URINE AUTO 2+ (NEGATIVE); NITRITE, URINE AUTO NEGATIVE (NEGATIVE); PROTEIN, URINE AUTO NEGATIVE (NEGATIVE); RBC, URINE AUTO 0 /HPF (0-3); SPECIFIC GRAVITY URINE AUTO 1.008 (1.002-1.035); SQUAMOUS EPITHELIAL CELL UR AU 1 /HPF (0-6); UROBILINOGEN, URINE AUTO 0.2 mg/dL (0.0-2.0); WBC, URINE AUTO 8 /HPF (0-3)
[2019-06-19 20:56] LABS: BLOOD UREA NITROGEN 22 MG/DL (7-18); CALCIUM LEVEL 9.1 MG/DL (8.8-10.2); CARBON DIOXIDE LEVEL 32 MEQ/L (21-32); CHLORIDE LEVEL 100 MEQ/L (98-107); CREATININE FOR GFR 0.76 MG/DL (0.55-1.30); GLOMERULAR FILTRATION RATE > 60.0 (>39); GLUCOSE, FASTING 89 MG/DL (70-100); POTASSIUM SERUM 4.5 MEQ/L (3.5-5.1); SODIUM LEVEL 136 MEQ/L (136-145)
== END ==
LOC: M SFHCLERA 16:56
PROVIDERS: ATTEND Family Medicine
DX: I10 Essential (primary) hypertension (principal); N39.41 Urge incontinence
CPT/HCPCS: 80048; 81001; 87086; 90682; G0008; G0463

== ENCOUNTER → 2019-07-22 | Outpatient (CLI) | payer MEDICARE ==
--- NOTE | 2019-07-22 16:31 | REP ---
Right knee four views: There is demineralization. There is tricompartment osteoarthritis, most advanced in the lateral compartment. There is a small joint effusion. There is no fracture or dislocation. There are no calcifications or foreign bodies. Electronically Signed by Jericho Pop MD 07/22/2019 04:22 P
--- NOTE | 2019-07-22 16:32 | REP ---
Right ankle four views: There are no comparisons. I suspect there is soft tissue edema. This should be confirmed clinically. There is no fracture or dislocation. There is demineralization. The tibiotalar joint space is unremarkable. The mortise is symmetric. There is osteoarthritis in the visualized tarsal ossicles. There is a calcaneal plantar spur. Electronically Signed by Jericho Pop MD 07/22/2019 04:24 P
--- NOTE | 2019-07-22 16:36 | REP ---
Right lower extremity deep vein duplex ultrasound: The deep veins demonstrate normal compression, normal Doppler color flow and normal Doppler waveforms with respiration and augmentation from the popliteal vein to the common femoral vein. Impression: There is no right lower extremity deep vein thrombus. However, there is a popliteal fossa Bain's cyst measuring 3.7 cm craniocaudad by 1.0 cm AP by 2.9 cm transversely. Electronically Signed by Jericho Pop MD 07/22/2019 04:28 P
== END ==
LOC: M RAD 15:37
PROVIDERS: ATTEND Family Medicine
DX: M19.071 Primary osteoarthritis, right ankle and foot (principal); M77.31 Calcaneal spur, right foot; M17.11 Unilateral primary osteoarthritis, right knee; M25.461 Effusion, right knee; M25.561 Pain in right knee; M25.571 Pain in right ankle and joints of right foot; M79.661 Pain in right lower leg
CPT/HCPCS: 73564; 73610; 93971; G0463

== ENCOUNTER → 2019-07-23 | Outpatient (REF) | payer MEDICARE ==
[2019-07-23 18:54] LABS: APPEARANCE, URINE CLEAR (CLEAR); BACTERIA, URINE AUTO NEGATIVE (NEGATIVE); BILIRUBIN, URINE AUTO NEGATIVE (NEGATIVE); BLOOD, URINE BLOOD NEGATIVE (NEGATIVE); COLOR, URINE STRAW (YELLOW); GLUCOSE, URINE (UA) AUTO NEGATIVE (NEGATIVE); KETONE, URINE AUTO NEGATIVE (NEGATIVE); LEUKOCYTE ESTERASE, URINE AUTO 1+ (NEGATIVE); NITRITE, URINE AUTO NEGATIVE (NEGATIVE); PROTEIN, URINE AUTO NEGATIVE (NEGATIVE); RBC, URINE AUTO 1 /HPF (0-3); SPECIFIC GRAVITY URINE AUTO 1.005 (1.002-1.035); SQUAMOUS EPITHELIAL CELL UR AU 1 /HPF (0-6); UROBILINOGEN, URINE AUTO 0.2 mg/dL (0.0-2.0); WBC, URINE AUTO 0 /HPF (0-3)
== END ==
LOC: M LAB REF 16:52
PROVIDERS: ATTEND Obstetrics & Gynecology
DX: N32.81 Overactive bladder (principal)

== ENCOUNTER → 2019-09-12 | Outpatient (CLI) | payer MEDICARE ==
--- NOTE | 2019-09-12 13:58 | REPMRS ---
Patient History The patient states she has not had a clinical breast exam in over a year. Patient is postmenopausal and has history of other cancer at age 67. No known family history of cancer. No Hormone Replacement Therapy 3D TOMOSYNTHESIS WAS PERFORMED. The [facility] lifetime risk for breast cancer is 1.7%. Digital Woman Screen Mammo: September 12, 2019 - Exam #: [id number] Bilateral CC and MLO view(s) were taken. Technologist: Sri Kelly, Technologist Prior study comparison: February 13, 2017, digital woman screen mammo performed at [facility]. March 24, 2015, digital woman screen mammo performed at [facility]. FINDINGS: There are scattered fibroglandular densities. There has been no change in the appearance of the mammogram from the prior studies. There is a mild amount of residual fibroglandular tissue which is fairly symmetric. There is no interval development of dominant mass, architectural distortion, or clustered microcalcification suggestive of malignancy. Assessment: BI-RADS/ACR category 1 mammogram. Negative Mammogram. Recommendation Routine screening mammogram in 1 year (for women over age 40). This mammogram was interpreted with the aid of an FDA-approved computer-aided dectection system. Electronically Signed By: Jericho Solano MD 09/12/19 [id number]
--- NOTE | 2019-09-22 15:30 | DEXA ---
AP SPINE L1 - L4 0.767 -3.4 -1.6 LT FEMUR TOTAL 0.655 -2.8 -0.9 LT NECK 0.698 -2.4 -0.4 RT FEMUR TOTAL 0.600 -3.2 -1.3 RT NECK 0.647 -2.8 -0.7 TOTAL BODY TOTAL OTHER COMMENTS: There is osteoporosis of the spine and hips. FOLLOW-UP: Recommendation for the next bone density exam: 2 years. MIGUELINA
== END ==
LOC: M WHC 12:59
PROVIDERS: ATTEND Family Medicine
DX: Z12.31 Encounter for screening mammogram for malignant neoplasm of breast (principal); Z13.820 Encounter for screening for osteoporosis; M81.0 Age-related osteoporosis without current pathological fracture; Z78.0 Asymptomatic menopausal state

== ENCOUNTER → 2019-11-10 | Outpatient (CLI) | payer MEDICARE ==
--- NOTE | 2019-11-10 17:48 | REP ---
Right knee series: Five views. History: Primary osteoarthritis. Comparison right knee radiographs are from July 22, 2019. Findings: There is three compartment right knee joint osteoarthritis with lateral compartment sclerosis and joint space narrowing. There is diffuse osteopenia. Patellofemoral compartment narrowing is seen. There is a fabella posterolaterally. Findings are essentially unchanged from the July 22, 2019 prior study. Impression: Moderate three compartment osteoarthritis of the knee, most pronounced in the lateral compartment. Electronically Signed by Reno Torrez MD 11/10/2019 06:21 P
== END ==
LOC: M LRY 16:09
PROVIDERS: ATTEND Family Medicine
DX: M17.11 Unilateral primary osteoarthritis, right knee (principal)
CPT/HCPCS: 73564; G0463

== ENCOUNTER → 2020-03-23 | Outpatient (REF) | payer MEDICARE ==
[2020-03-23 19:25] LABS: BLOOD UREA NITROGEN 21 MG/DL (7-18); CALCIUM LEVEL 8.8 MG/DL (8.8-10.2); CARBON DIOXIDE LEVEL 26 MEQ/L (21-32); CHLORIDE LEVEL 107 MEQ/L (98-107); CREATININE FOR GFR 0.77 MG/DL (0.55-1.30); GLOMERULAR FILTRATION RATE > 60.0 (>39); GLUCOSE, FASTING 100 MG/DL (70-100); POTASSIUM SERUM 4.7 MEQ/L (3.5-5.1); SODIUM LEVEL 136 MEQ/L (136-145)
== END ==
LOC: M SFHCLERA 15:30
PROVIDERS: ATTEND Family Medicine
DX: E03.9 Hypothyroidism, unspecified (principal); I10 Essential (primary) hypertension

== ENCOUNTER → 2020-10-28 | Outpatient (CLI) | payer MEDICARE ==
[~2020-10-28] MED LIST changes: -LISI-542 PO; +LISI-898 PO
[2020-10-28 10:43] LABS: BLOOD UREA NITROGEN 17 MG/DL (7-18); CALCIUM LEVEL 9.2 MG/DL (8.8-10.2); CARBON DIOXIDE LEVEL 30 MEQ/L (21-32); CHLORIDE LEVEL 103 MEQ/L (98-107); CHOLESTEROL LEVEL 232 MG/DL (<200); CHOLESTEROL RISK RATIO 3.625 (<5); GLOMERULAR FILTRATION RATE > 60.0 (>39); GLUCOSE, FASTING 93 MG/DL (70-100); HDL CHOLESTEROL 64 MG/DL (>40); LDL CHOLESTEROL 157 MG/DL (<100); NON-HDL-C 168 MG/DL; SODIUM LEVEL 139 MEQ/L (136-145); TRIGLYCERIDES LEVEL 57 MG/DL (<150)
== END ==
LOC: M WUC 08:32
PROVIDERS: ATTEND Family Medicine
DX: E78.5 Hyperlipidemia, unspecified (principal); E03.9 Hypothyroidism, unspecified; I10 Essential (primary) hypertension

== ENCOUNTER → 2021-01-03 | Outpatient (CLI) | payer MEDICARE | LOC: M WUC 13:26 | PROVIDERS: ATTEND Family Medicine | DX: E03.9 Hypothyroidism, unspecified (principal) ==

== ENCOUNTER 2021-03-10 09:20 | Emergency (ER) | payer MEDICARE ==
[~2021-03-10] VITALS: Ht 154.9 cm; Wt 65.0 kg
[2021-03-10] MEDS ORDERED: MELA5CAP2 PO (09:43)
[2021-03-10] MEDS ORDERED: PRES10CA2 PO (09:43)
[2021-03-10] MEDS ORDERED: EUTH175T (09:43)
[2021-03-10] MEDS ORDERED: GNP250TA9 PO (09:43)
[2021-03-10] MEDS ORDERED: LISI10TA22 (09:43)
[2021-03-10 09:59] LABS: BASO # 0.1 10^3/uL (0.0-0.2); BASO % 0.5 % (0.0-1.0); EOS # 0.2 10^3/uL (0.0-0.5); EOS % 1.5 % (0.0-3.0); HEMATOCRIT 40.4 % (36.0-47.0); HEMOGLOBIN 12.9 g/dl (12.0-15.5); LYMPH # 1.3 10^3/uL (1.5-5.0); LYMPH % 10.8 % (24.0-44.0); MEAN CORPUSCULAR HEMOGLOBIN 30.2 pg (27.0-33.0); MEAN CORPUSCULAR HGB CONC 31.9 g/dl (32.0-36.5); MEAN CORPUSCULAR VOLUME 94.6 fl (80.0-96.0); MONO # 0.8 10^3/uL (0.0-0.8); MONO % 6.2 % (2.0-8.0); NEUTROPHILS # 9.9 10^3/uL (1.5-8.5); NEUTROPHILS % 80.4 % (36.0-66.0); PLATELET COUNT, AUTOMATED 328 10^3/uL (150-450); RED BLOOD COUNT 4.27 10^6/uL (4.00-5.40); WHITE BLOOD COUNT 12.4 10^3/uL (4.0-10.0)
[2021-03-10 10:23] LABS: BLOOD UREA NITROGEN 18 MG/DL (7-18); CALCIUM LEVEL 9.2 MG/DL (8.8-10.2); CARBON DIOXIDE LEVEL 28 MEQ/L (21-32); CHLORIDE LEVEL 105 MEQ/L (98-107); CK-MB VALUE MASS < 1.0 NG/ML (<3.6); CPK CREATINE PHOSPHOKINASE 49 U/L (26-192); CREATININE FOR GFR 0.68 MG/DL (0.55-1.30); GLOMERULAR FILTRATION RATE > 60.0 (>32); GLUCOSE, FASTING 114 MG/DL (70-100); MB/CK RELATIVE INDEX 2.04 (< OR =4); POTASSIUM SERUM 4.8 MEQ/L (3.5-5.1); SODIUM LEVEL 139 MEQ/L (136-145); TROPONIN I < 0.02 NG/ML (< 0.10)
--- NOTE | 2021-03-10 10:26 | REP ---
INDICATION: cough. COMPARISON: Comparison chest x-ray 08 October 2018.. TECHNIQUE: Sitting AP chest radiograph. FINDINGS: EKG monitoring electrodes are seen. There are numerous granulomatous calcifications scattered throughout the lung barber. Thoracic aorta is tortuous as before. Heart size is borderline. Pulmonary vasculature is not increased. There are advanced degenerative arthropathy changes at the shoulders. IMPRESSION: Old granulomatous disease. Borderline heart size. Otherwise no acute changes. <Electronically signed by Shahid Torrez > 03/10/21 1027
--- NOTE | 2021-03-10 10:29 | REP ---
INDICATION: dizziness. COMPARISON: None. TECHNIQUE: Helical scanning is acquired. 5 mm axial images were reformatted. Coronal MPR images were generated. FINDINGS: Bone window settings demonstrate an intact bony calvarium. There is no evidence of skull fracture or incidental bony calvarial lesion. The visualized paranasal sinuses appear clear. No intraorbital abnormality is seen. On soft tissue window setting images; the lateral, third, and fourth ventricles are normal in size and position. Solano-white differentiation pattern is normal above and below the tentorium. There are is no evidence of intracranial hemorrhage. No mass, edema, infarction, or midline shift is seen. No extra-axial fluid collection is appreciated. There is generalized volume loss. IMPRESSION: Generalized volume loss. Otherwise negative CT study of the brain.. <Electronically signed by Shahid Torrez > 03/10/21 [id number]
[2021-03-10 11:34] LABS: ALBUMIN 3.5 GM/DL (3.2-5.2); ALT/SGPT 23 U/L (12-78); BILIRUBIN,DIRECT 0.1 MG/DL (0.0-0.2); BILIRUBIN,TOTAL 0.5 MG/DL (0.2-1.0); LIPASE 149 U/L (73-393); TOTAL PROTEIN 6.9 GM/DL (6.4-8.2)
[2021-03-10 13:23] LABS: CK-MB VALUE MASS 1.5 NG/ML (<3.6); CPK CREATINE PHOSPHOKINASE 37 U/L (26-192); MB/CK RELATIVE INDEX 4.05 (< OR =4); TROPONIN I < 0.02 NG/ML (< 0.10)
[2021-03-10 13:36] VITALS: BP 120/65
--- NOTE | 2021-03-10 20:53 | ECGEPIP ---
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
== END 2021-03-10 13:43 | disposition home or self-care (01) ==
LOC: M ED 09:20 → EDBD 09:20 → M ED 13:43
DX: R55 Syncope and collapse (principal); E78.5 Hyperlipidemia, unspecified; Z79.899 Other long term (current) drug therapy

== ENCOUNTER → 2021-04-13 | Outpatient (REF) | payer MEDICARE ==
[~2021-04-13] MED LIST changes: +EUTH175T; +GNP250TA9 PO; +LISI10TA22; +MELA5CAP2 PO; +PRES10CA2 PO
== END ==
LOC: M WUC 20:11
PROVIDERS: ATTEND Family Medicine
DX: E03.9 Hypothyroidism, unspecified (principal)

== ENCOUNTER → 2021-07-12 | Outpatient (CLI) | payer MEDICARE | LOC: M WUC 10:10 | PROVIDERS: ATTEND Family Medicine | DX: E89.0 Postprocedural hypothyroidism (principal) ==

== ENCOUNTER → 2021-12-01 | Outpatient (CLI) | payer MEDICARE ==
[~2021-12-01] MED LIST changes: -LISI-898 PO; +LISI5TAB11 PO
[2021-12-01 16:35] LABS: HEMATOCRIT 39.8 % (36.0-47.0); HEMOGLOBIN 12.9 g/dl (12.0-15.5); MEAN CORPUSCULAR HEMOGLOBIN 30.3 pg (27.0-33.0); MEAN CORPUSCULAR HGB CONC 32.4 g/dl (32.0-36.5); MEAN CORPUSCULAR VOLUME 93.4 fl (80.0-96.0); PLATELET COUNT, AUTOMATED 343 10^3/uL (150-450); RED BLOOD COUNT 4.26 10^6/uL (4.00-5.40); WHITE BLOOD COUNT 9.2 10^3/uL (4.0-10.0)
[2021-12-01 17:09] LABS: BLOOD UREA NITROGEN 17 MG/DL (7-18); CARBON DIOXIDE LEVEL 33 MEQ/L (21-32); CHLORIDE LEVEL 103 MEQ/L (98-107); CREATININE FOR GFR 0.89 MG/DL (0.55-1.30); GLOMERULAR FILTRATION RATE > 60.0 (>32); GLUCOSE, FASTING 132 MG/DL (70-100); POTASSIUM SERUM 4.3 MEQ/L (3.5-5.1); SODIUM LEVEL 140 MEQ/L (136-145)
[2021-12-01 17:10] LABS: ALBUMIN 3.8 GM/DL (3.2-5.2); ALT/SGPT 22 U/L (12-78); BILIRUBIN,TOTAL 0.4 MG/DL (0.2-1.0); FREE T4 1.74 NG/DL (0.76-1.46); MAGNESIUM LEVEL 2.2 MG/DL (1.8-2.4)
== END ==
LOC: M WUC 13:22
PROVIDERS: ATTEND Physician Assistant
DX: R00.2 Palpitations (principal); R55 Syncope and collapse

== ENCOUNTER → 2021-12-01 | Outpatient (CLI) | payer MEDICARE | LOC: M RAD 14:07 | PROVIDERS: ATTEND Physician Assistant | DX: R55 Syncope and collapse (principal) ==

== ENCOUNTER → 2022-01-31 | Outpatient (CLI) | payer MEDICARE | LOC: M WUC 08:52 | PROVIDERS: ATTEND Family Medicine | DX: E03.9 Hypothyroidism, unspecified (principal) ==

== ENCOUNTER → 2022-03-27 | Outpatient (CLI) | payer MEDICARE | LOC: M WUC 10:50 | PROVIDERS: ATTEND Family Medicine | DX: E03.9 Hypothyroidism, unspecified (principal) ==

== ENCOUNTER → 2022-04-10 | Outpatient (CLI) | payer MEDICARE ==
[2022-04-10 12:05] LABS: BLOOD UREA NITROGEN 15 MG/DL (7-18); CREATININE FOR GFR 0.66 MG/DL (0.55-1.30); GLOMERULAR FILTRATION RATE > 60.0 (>32)
== END ==
LOC: M PLALAB 10:17 → M LAB 10:17
PROVIDERS: ATTEND Physician Assistant
DX: I65.22 Occlusion and stenosis of left carotid artery (principal)

== ENCOUNTER → 2022-04-11 | Outpatient (CLI) | payer MEDICARE ==
[~2022-04-11] MED LIST changes: +ISOVUE-370 76% 100ML VIAL As Ordered ONE
== END ==
LOC: M RAD 16:48
PROVIDERS: ATTEND Physician Assistant
DX: D37.030 Neoplasm of uncertain behavior of the parotid salivary glands (principal); I65.23 Occlusion and stenosis of bilateral carotid arteries
CPT/HCPCS: 70498; Q9967

== ENCOUNTER → 2022-05-29 | Outpatient (CLI) | payer MEDICARE ==
[~2022-05-29] MED LIST changes: -ISOVUE-370 76% 100ML VIAL As Ordered ONE
== END ==
LOC: M WUC 13:21
PROVIDERS: ATTEND Family Medicine
DX: E03.9 Hypothyroidism, unspecified (principal)

== ENCOUNTER 2022-06-20 10:07 | Emergency (ER) | payer MEDICARE ==
[~2022-06-20] VITALS: Ht 152.4 cm; Wt 63.0 kg
[2022-06-20] MEDS ORDERED: LEVO100T5 (10:22)
[2022-06-20 11:13] LABS: BASO # 0.1 10^3/uL (0.0-0.2); BASO % 0.4 % (0.0-1.0); EOS # 0.1 10^3/uL (0.0-0.5); EOS % 0.7 % (0.0-3.0); HEMATOCRIT 39.3 % (36.0-47.0); HEMOGLOBIN 12.4 g/dl (12.0-15.5); LYMPH # 1.1 10^3/uL (1.5-5.0); LYMPH % 7.7 % (24.0-44.0); MEAN CORPUSCULAR HGB CONC 31.6 g/dl (32.0-36.5); MEAN CORPUSCULAR VOLUME 94.9 fl (80.0-96.0); MONO # 0.8 10^3/uL (0.0-0.8); MONO % 5.5 % (2.0-8.0); NEUTROPHILS # 11.9 10^3/uL (1.5-8.5); NEUTROPHILS % 85.3 % (36.0-66.0); PLATELET COUNT, AUTOMATED 274 10^3/uL (150-450); RED BLOOD COUNT 4.14 10^6/uL (4.00-5.40); WHITE BLOOD COUNT 13.9 10^3/uL (4.0-10.0)
[2022-06-20 12:16] LABS: BLOOD UREA NITROGEN 23 MG/DL (7-18); CARBON DIOXIDE LEVEL 31 MEQ/L (21-32); CHLORIDE LEVEL 105 MEQ/L (98-107); CREATININE FOR GFR 0.76 MG/DL (0.55-1.30); FREE T4 1.21 NG/DL (0.76-1.46); GLOMERULAR FILTRATION RATE > 60.0 (>32); GLUCOSE, FASTING 113 MG/DL (70-100); POTASSIUM SERUM 4.9 MEQ/L (3.5-5.1); SODIUM LEVEL 137 MEQ/L (136-145)
[2022-06-20 13:45] VITALS: BP 123/64
== END 2022-06-20 13:52 | disposition home or self-care (01) ==
LOC: M ED 10:07 → EDBD 10:07 → M ED 13:52
DX: I10 Essential (primary) hypertension (principal); M19.90 Unspecified osteoarthritis, unspecified site; M71.20 Synovial cyst of popliteal space [Baker], unspecified knee; Z79.899 Other long term (current) drug therapy

== ENCOUNTER → 2022-09-25 | Outpatient (CLI) | payer MEDICARE ==
[~2022-09-25] MED LIST changes: +LEVO100T5
[2022-09-25 17:17] LABS: THYROID STIMULATING HORMONE 3.329 uIU/ML (0.55-4.78)
[2022-09-25 17:22] LABS: FREE T4 1.4 NG/DL (0.89-1.76)
== END ==
LOC: M WUC 13:42
PROVIDERS: ATTEND Internal Medicine Endocrinology, Diabetes & Metabolism
DX: E03.9 Hypothyroidism, unspecified (principal)

== ENCOUNTER → 2022-12-06 | Outpatient (CLI) | payer MEDICARE ==
[2022-12-06 17:20] LABS: THYROID STIMULATING HORMONE 6.517 uIU/ML (0.55-4.78)
[2022-12-06 17:21] LABS: FREE T4 1.32 NG/DL (0.89-1.76)
== END ==
LOC: M WUC 14:00
PROVIDERS: ATTEND Internal Medicine Endocrinology, Diabetes & Metabolism
DX: E89.0 Postprocedural hypothyroidism (principal)

== ENCOUNTER → 2023-02-14 | Outpatient (REF) | payer MEDICARE ==
[2023-02-14 17:28] LABS: THYROID STIMULATING HORMONE 8.633 uIU/ML (0.55-4.78)
[2023-02-14 17:29] LABS: FREE T4 1.22 NG/DL (0.89-1.76)
== END ==
LOC: M LABWUC 16:13
PROVIDERS: ATTEND Internal Medicine Endocrinology, Diabetes & Metabolism
DX: E89.0 Postprocedural hypothyroidism (principal)

== ENCOUNTER → 2023-03-21 | Outpatient (CLI) | payer MEDICARE | LOC: M WUC 12:43 | PROVIDERS: ATTEND Student in an Organized Health Care Education/Training Program | DX: M54.41 Lumbago with sciatica, right side (principal) ==

== ENCOUNTER → 2023-12-04 | Outpatient (CLI) | payer MEDICARE ==
[2023-12-04 20:36] LABS: FREE T4 1.11 NG/DL (0.89-1.76)
[2023-12-04 20:37] LABS: THYROID STIMULATING HORMONE 22.712 uIU/ML (0.55-4.78)
== END ==
LOC: M WUC 15:12
PROVIDERS: ATTEND Internal Medicine Endocrinology, Diabetes & Metabolism
DX: E89.0 Postprocedural hypothyroidism (principal)

== ENCOUNTER → 2023-12-25 | Outpatient (CLI) | payer MEDICARE | LOC: M SOG 14:48 | PROVIDERS: ATTEND Orthopaedic Surgery | DX: M54.50 Low back pain, unspecified (principal) ==

== ENCOUNTER → 2024-03-24 | Outpatient (CLI) | payer MEDICARE ==
[2024-03-24 11:02] LABS: HEMATOCRIT 39.5 % (36.0-47.0); HEMOGLOBIN 12.9 g/dl (12.0-15.5); MEAN CORPUSCULAR HEMOGLOBIN 31.2 pg (27.0-33.0); MEAN CORPUSCULAR HGB CONC 32.7 g/dl (32.0-36.5); MEAN CORPUSCULAR VOLUME 95.4 fl (80.0-96.0); PLATELET COUNT, AUTOMATED 305 10^3/uL (150-450); RED BLOOD COUNT 4.14 10^6/uL (4.00-5.40); WHITE BLOOD COUNT 5.8 10^3/uL (4.0-10.0)
[2024-03-24 11:29] LABS: ALBUMIN 3.5 G/DL (3.2-5.2); ALKALINE PHOSPHATASE 76 U/L (46-116); ALT/SGPT 22 U/L (7.0-40); AST/SGOT 14 U/L (<34); BILIRUBIN,TOTAL 0.6 MG/DL (0.3-1.2); BLOOD UREA NITROGEN 22 MG/DL (9-23); CALCIUM LEVEL 8.8 MG/DL (8.3-10.6); CARBON DIOXIDE LEVEL 30 MMOL/L (20-31); CHLORIDE LEVEL 103 MMOL/L (98-107); CHOLESTEROL LEVEL 218 MG/DL (<200); CHOLESTEROL RISK RATIO 3.67 (<5); CREATININE FOR GFR 0.67 MG/DL (0.55-1.30); GLOMERULAR FILTRATION RATE > 60.0 (>32); GLUCOSE, FASTING 92 MG/DL (74-106); HDL CHOLESTEROL 59.4 MG/DL (>40); NON-HDL-C 158.6 MG/DL; POTASSIUM SERUM 4.6 MMOL/L (3.5-5.1); SODIUM LEVEL 137 MMOL/L (136-145); TOTAL PROTEIN 6.7 G/DL (5.7-8.2); TRIGLYCERIDES LEVEL 78 MG/DL (<150)
== END ==
LOC: M WUC 08:46
PROVIDERS: ATTEND Physician Assistant
DX: I10 Essential (primary) hypertension (principal); E78.00 Pure hypercholesterolemia, unspecified; R60.0 Localized edema; I35.8 Other nonrheumatic aortic valve disorders

== ENCOUNTER → 2024-05-06 | Outpatient (CLI) | payer MEDICARE | LOC: M PLAIMG 08:26 | PROVIDERS: ATTEND Internal Medicine Cardiovascular Disease | DX: R60.0 Localized edema (principal); I35.8 Other nonrheumatic aortic valve disorders ==

== ENCOUNTER → 2024-06-10 | Outpatient (CLI) | payer MEDICARE ==
[2024-06-10 20:07] LABS: FREE T4 1.73 NG/DL (0.89-1.76); THYROID STIMULATING HORMONE 1.828 uIU/ML (0.55-4.78)
== END ==
LOC: M WUC 15:16
PROVIDERS: ATTEND Internal Medicine Endocrinology, Diabetes & Metabolism
DX: E89.0 Postprocedural hypothyroidism (principal)

== ENCOUNTER → 2024-07-21 | Outpatient (CLI) | payer MEDICARE ==
[2024-07-21 11:22] LABS: ALBUMIN 3.6 G/DL (3.2-5.2); BILIRUBIN,DIRECT 0.2 MG/DL (<0.4); BILIRUBIN,TOTAL 0.6 MG/DL (0.3-1.2); CHOLESTEROL RISK RATIO 2.61 (<5); HDL CHOLESTEROL 64.7 MG/DL (>40); LDL CHOLESTEROL 91.5 MG/DL (<100); NON-HDL-C 104.3 MG/DL; TOTAL PROTEIN 6.9 G/DL (5.7-8.2)
== END ==
LOC: M WUC 08:39
PROVIDERS: ATTEND Physician Assistant
DX: E78.00 Pure hypercholesterolemia, unspecified (principal)

== ENCOUNTER → 2025-01-05 | Outpatient (CLI) | payer MEDICARE ==
[2025-01-05 14:25] LABS: THYROID STIMULATING HORMONE 0.353 uIU/ML (0.55-4.78)
[2025-01-05 14:26] LABS: FREE T4 1.77 NG/DL (0.89-1.76)
== END ==
LOC: M WUC 11:21
PROVIDERS: ATTEND Internal Medicine Endocrinology, Diabetes & Metabolism
DX: E89.0 Postprocedural hypothyroidism (principal)

== ENCOUNTER 2025-01-19 15:08 | Emergency (ER) | payer MEDICARE ==
[~2025-01-19] VITALS: Ht 154.9 cm; Wt 67.1 kg
[~2025-01-19 15:08] MED LIST changes: -FLOM0.4C39 PO; +TAMS-18 PO
[2025-01-19 15:09] VITALS: TEMP 97.9
[2025-01-19 15:46] LABS: BASO % 0.6 % (0.0-1.0); EOS # 0.3 10^3/uL (0.0-0.5); EOS % 3.8 % (0.0-3.0); HEMATOCRIT 41.1 % (36.0-47.0); HEMOGLOBIN 13.3 g/dl (12.0-15.5); LYMPH # 1.5 10^3/uL (1.5-5.0); LYMPH % 22.6 % (24.0-44.0); MEAN CORPUSCULAR HGB CONC 32.4 g/dl (32.0-36.5); MEAN CORPUSCULAR VOLUME 95.8 fl (80.0-96.0); MONO # 0.6 10^3/uL (0.0-0.8); MONO % 9.3 % (2.0-8.0); NEUTROPHILS # 4.2 10^3/uL (1.5-8.5); NEUTROPHILS % 63.4 % (36.0-66.0); PLATELET COUNT, AUTOMATED 308 10^3/uL (150-450); RED BLOOD COUNT 4.29 10^6/uL (4.00-5.40); WHITE BLOOD COUNT 6.6 10^3/uL (4.0-10.0)
[2025-01-19] MEDS ORDERED: ISOVUE-370 76% 100ML VIAL As Ordered ONE (16:02)
[2025-01-19 16:03] LABS: INR 0.91; PARTIAL THROMBOPLASTIN TIME 28.2 SECONDS (24.8-34.2); PROTHROMBIN TIME 12.6 SECONDS (12.5-14.5)
[2025-01-19 16:15] LABS: ALBUMIN 3.5 G/DL (3.2-5.2); ALKALINE PHOSPHATASE 75 U/L (35-104); ALT/SGPT 24 U/L (7.0-40); AST/SGOT 18 U/L (<34); BILIRUBIN,DIRECT < 0.1 MG/DL (<0.4); BILIRUBIN,TOTAL 0.4 MG/DL (0.3-1.2); BLOOD UREA NITROGEN 20 MG/DL (9-23); CALCIUM LEVEL 9.2 MG/DL (8.3-10.6); CARBON DIOXIDE LEVEL 28 MMOL/L (20-31); CHLORIDE LEVEL 106 MMOL/L (98-107); CREATININE FOR GFR 0.63 MG/DL (0.55-1.30); GLUCOSE, FASTING 94 MG/DL (74-106); POTASSIUM SERUM 4.3 MMOL/L (3.5-5.1); SODIUM LEVEL 141 MMOL/L (136-145); TOTAL PROTEIN 6.8 G/DL (5.7-8.2)
[2025-01-19 16:25] LABS: CPK CREATINE PHOSPHOKINASE 47 U/L (34-145); MB/CK RELATIVE INDEX 2.12 (< OR =4)
[2025-01-19] MEDS: MECLIZINE 25 MG TABLET PO ONE (16:45)
[2025-01-19] MEDS: NS (Normal Saline) 0.9% 1,000 ML IV SCH (16:45)
[2025-01-19 17:18] LABS: CPK CREATINE PHOSPHOKINASE 38 U/L (34-145)
[2025-01-19 17:24] LABS: CK-MB VALUE MASS < 1.0 NG/ML (<3.6); MB/CK RELATIVE INDEX 2.63 (< OR =4)
[2025-01-19 17:26] VITALS: BP 153/82
[2025-01-19 19:30] VITALS: BP 149/77; O2SAT 95
[2025-01-19] MEDS ORDERED: MECL-209 PO (20:03)
[2025-01-19] MEDS ORDERED: ASPI81TA26 PO (20:03)
[2025-01-19 20:18] LABS: VITAMIN B12 LEVEL 636 PG/ML (211-911)
== END 2025-01-19 20:50 | disposition home or self-care (01) ==
LOC: M ED 15:08
DX: H81.4 Vertigo of central origin (principal); I44.7 Left bundle-branch block, unspecified; I10 Essential (primary) hypertension; E78.5 Hyperlipidemia, unspecified; E03.9 Hypothyroidism, unspecified; Z79.1 Long term (current) use of non-steroidal anti-inflammatories (NSAID); Z79.899 Other long term (current) drug therapy; Z79.810 Long term (current) use of selective estrogen receptor modulators (SERMs)
CPT/HCPCS: 70450; 70496; 70498; 70544; 70551; 71045; 80047; 80048; 80076; 82525; 82550; 82553; 82607; 84425; 84484; 85025; 85610; 85730; 86850; 86900; 86901; 93005; 93041; 94760; 96360; 96361; 99285; Q9967

== ENCOUNTER → 2025-06-15 | Outpatient (CLI) | payer MEDICARE ==
[~2025-06-15] MED LIST changes: +MECL-209 PO
[2025-06-15 14:36] LABS: FREE T4 1.74 NG/DL (0.89-1.76)
== END ==
LOC: M WUC 11:46
PROVIDERS: ATTEND Nurse Practitioner Family
DX: E89.0 Postprocedural hypothyroidism (principal); C73 Malignant neoplasm of thyroid gland

== ENCOUNTER → 2025-08-24 | Outpatient (CLI) | payer MEDICARE | LOC: M WHC 10:32 | PROVIDERS: ATTEND Student in an Organized Health Care Education/Training Program | DX: Z13.820 Encounter for screening for osteoporosis (principal); M81.0 Age-related osteoporosis without current pathological fracture ==